=== PATIENT | male | born 1955 | race Caucasian/White ===

== ENCOUNTER 2023-04-09 14:02 | Inpatient (IN) | payer OTHER, MEDICARE ==
[~2023-04-09 14:02] MED LIST: Iopamidol-370 76% 500 ML MDV (1 ML CHARGE) ONE
[2023-04-09] MEDS ORDERED: Boostrix 0.5 ML (Tdap) VIAL (>/=7 yrs of age) ONE (14:04)
[2023-04-09] MEDS ORDERED: CEFAZOLIN 2 GM VIAL ONE ×2 (14:04→14:16)
[2023-04-09] MEDS ORDERED: Morphine 4 MG/ML VIAL ONE ×3 (14:08→17:52)
[2023-04-09] MEDS ORDERED: Lidocaine 1% w/Epinephrine 1:100K 20 ML VIAL ONE ×3 (14:16→15:20)
[2023-04-09] MEDS ORDERED: Ketamine 50 MG/ML (10ML VIAL) ONE (14:16)
[2023-04-09 14:29] LABS: #Basophils 0.2 thou/uL (0.0-0.2); #Eosinphils 0.1 thou/uL (0.0-0.7); #Neutrophils 14.8 thou/uL (1.40-6.50); %Basophils 0.9 % (0.0-1.0); %Eosinophils 0.6 % (0.0-10.0); %Lymphocytes 17.5 % (21.0-51.0); %Monocytes 5.2 % (0.0-10.0); %Neutrophils 74.5 % (42.0-75.0); Hematocrit 45.4 % (42.0-52.0); Hemoglobin 14.6 g/dL (14.0-18.0); Mean Corpuscular HGB CONC 32.2 g/dL (32.0-36.0); Mean Corpuscular Hemoglobin 30.5 pg (27.0-31.0); Mean Platelet Volume 9.4 fL (7.4-10.4); Platelet Count 225 10x3/uL (130-400); RBC Distribution Width 13.5 % (11.5-14.5); Red Blood Cell (RBC) Count 4.78 mill/uL (4.70-6.10); White Blood Cell (WBC) Count 19.8 10x3/uL (4.8-10.8)
[2023-04-09] MEDS ORDERED: fentaNYL 50 mcg/mL 1 mL Vial ONE (14:35)
[2023-04-09 14:52] LABS: ALT (SGPT) 41 U/L (8-55); AST (SGOT) 40 U/L (5-34); Alkaline Phosphatase 64 U/L (40-110); Anion Gap 14 mmol/L (10-20); BUN (Urea Nitrogen) 17 mg/dL (8.4-25.7); Bilirubin, Total 0.4 mg/dL (0.2-1.2); Calc. Creatinine Clearance 0 mL/min (70-130); Calcium 8.6 mg/dL (7.8-10.44); Carbon Dioxide 24 mmol/L (23-31); Chloride 109 mmol/L (98-107); Estimated GFR 43; Globulin 2.6 g/dL (2.4-3.5); Glucose 205 mg/dL (80-115); Potassium 3.8 mmol/L (3.5-5.1); Protein, Total 6.6 g/dL (5.8-8.1); Sodium 143 mmol/L (136-145)
[2023-04-09 15:19] LABS: INR-International Normal Ratio 1.1; PTT 22.9 sec (22.9-36.1); Prothrombin Time 14.5 sec (12.0-14.7)
[2023-04-09] MEDS ORDERED: Ketorolac Tromethamine 30 MG/ML VIAL ONE (15:33)
[2023-04-09] MEDS ORDERED: hydrALAZINE 20 MG/ML VIAL SLOW IVP PRN (16:01)
[2023-04-09] MEDS ORDERED: Ondansetron PF 4 MG/2 ML Vial IVP PRN ×2 (16:01→16:05)
[2023-04-09] MEDS ORDERED: Zolpidem Tartrate 5 MG TAB PO PRN (16:05)
[2023-04-09] MEDS ORDERED: Promethazine HCl 25 MG/ML VIAL IM PRN (16:05)
[2023-04-09] MEDS ORDERED: diphenhydrAMINE 50 MG/ML VIAL IM PRN (16:05)
[2023-04-09] MEDS ORDERED: diphenhydrAMINE 50 MG/ML VIAL IVP PRN (16:05)
[2023-04-09] MEDS ORDERED: Naloxone HCl 0.4 mg/ml Vial IV PRN (16:05)
[2023-04-09] MEDS ORDERED: HYDROmorphone 10 mg/100 ml CADD IVPB PRN (16:05)
[2023-04-09] MEDS ORDERED: diphenhydrAMINE 25 MG CAP PO PRN (16:05)
[2023-04-09] MEDS ORDERED: Communication Order-Pharmacy FS SCH (16:15)
[2023-04-09] MEDS ORDERED: Dextrose 50% Abboject 50 ML SYRINGE SLOW IVP PRN (17:00)
[2023-04-09] MEDS ORDERED: Glucagon 1 MG/ML KIT IM PRN (17:00)
[2023-04-09] MEDS ORDERED: Dextrose 5% in Water 1,000 ML IV PRN (17:00)
[2023-04-09 17:28] LABS: Lactic Acid 2.4 mmol/L (0.5-2.2)
[2023-04-09] MEDS: Ketorolac Tromethamine 30 MG/ML VIAL IVP SCH ×2 (19:31→22:58)
[2023-04-09] MEDS: Acetaminophen 500 MG TAB PO SCH ×2 (19:33→22:58)
[2023-04-09] MEDS: Famotidine/PF 20 mg/2ml Vial SLOW IVP SCH (19:35)
[2023-04-09] MEDS: Sodium Chloride 0.9% 1,000 ML IV SCH ×2 (19:41→23:39)
[2023-04-09] MEDS ORDERED: Gabapentin 300 MG CAP PO SCH (21:00)
[2023-04-09] MEDS: HumaLOG 300 UNITS/3 ML VIAL SC PRN (22:29)
[2023-04-10 02:53] LABS: #Basophils 0.1 thou/uL (0.0-0.2); #Monocytes 1.3 thou/uL (0.11-0.59); #Neutrophils 9.7 thou/uL (1.40-6.50); %Basophils 0.4 % (0.0-1.0); %Lymphocytes 17.2 % (21.0-51.0); %Monocytes 9.7 % (0.0-10.0); %Neutrophils 72.3 % (42.0-75.0); Hemoglobin 13.6 g/dL (14.0-18.0); Mean Corpuscular HGB CONC 31.6 g/dL (32.0-36.0); Mean Corpuscular Hemoglobin 30.5 pg (27.0-31.0); Mean Corpuscular Volume 96.4 fl (78.0-98.0); Mean Platelet Volume 9.6 fL (7.4-10.4); Platelet Count 142 10x3/uL (130-400); RBC Distribution Width 13.7 % (11.5-14.5); Red Blood Cell (RBC) Count 4.46 mill/uL (4.70-6.10); White Blood Cell (WBC) Count 13.4 10x3/uL (4.8-10.8)
[2023-04-10 03:33] LABS: Phosphorus 3.6 mg/dL (2.3-4.7)
[2023-04-10 03:40] LABS: Anion Gap 14 mmol/L (10-20); BUN (Urea Nitrogen) 25 mg/dL (8.4-25.7); Calc. Creatinine Clearance 51 mL/min (70-130); Calcium 8.2 mg/dL (7.8-10.44); Carbon Dioxide 18 mmol/L (23-31); Chloride 110 mmol/L (98-107); Estimated GFR 33; Glucose 203 mg/dL (80-115); Magnesium 2.3 mg/dL (1.6-2.6); Potassium 6.7 mmol/L (3.5-5.1); Sodium 135 mmol/L (136-145)
[2023-04-10] MEDS: Ketorolac Tromethamine 30 MG/ML VIAL IVP SCH (04:59)
[2023-04-10] MEDS: Acetaminophen 500 MG TAB PO SCH ×3 (04:59→18:09)
[2023-04-10] MEDS ORDERED: Calcium Chloride 1 GM/10 ML Abboject SYRINGE IVP SCH (05:00)
[2023-04-10] MEDS ORDERED: Insulin Regular 300 UNITS/3 ML VIAL IVP SCH (05:00)
[2023-04-10] MEDS ORDERED: Dextrose 50% Abboject 50 ML SYRINGE SLOW IVP PRN (05:03)
[2023-04-10] MEDS: Sodium Chloride 0.9% 1,000 ML IV SCH ×3 (05:27→18:09)
[2023-04-10] MEDS: HumaLOG 300 UNITS/3 ML VIAL SC PRN (06:08)
[2023-04-10] MEDS: Gabapentin 100 MG CAP PO SCH ×3 (08:45→21:23)
[2023-04-10 09:31] LABS: Anion Gap 15 mmol/L (10-20); BUN (Urea Nitrogen) 26 mg/dL (8.4-25.7); Calc. Creatinine Clearance 60 mL/min (70-130); Carbon Dioxide 19 mmol/L (23-31); Chloride 110 mmol/L (98-107); Estimated GFR 39; Glucose 182 mg/dL (80-115); Magnesium 2.5 mg/dL (1.6-2.6); Phosphorus 4.6 mg/dL (2.3-4.7); Potassium 4.9 mmol/L (3.5-5.1); Sodium 139 mmol/L (136-145)
[2023-04-10] MEDS ORDERED: Ipratropium/Albuterol 3 ML NEB NEB PRN ×2 (10:14→10:15)
[2023-04-10] MEDS: Ipratropium/Albuterol 3 ML NEB NEB SCH ×3 (12:34→22:32)
[2023-04-10] MEDS: Famotidine/PF 20 mg/2ml Vial SLOW IVP SCH (21:23)
[2023-04-11] MEDS: Acetaminophen 500 MG TAB PO SCH ×5 (00:20→18:40)
[2023-04-11 04:56] LABS: Anion Gap 19 mmol/L (10-20); BUN (Urea Nitrogen) 19 mg/dL (8.4-25.7); Calc. Creatinine Clearance 88 mL/min (70-130); Calcium 8.8 mg/dL (7.8-10.44); Carbon Dioxide 20 mmol/L (23-31); Chloride 109 mmol/L (98-107); Estimated GFR 62; Glucose 151 mg/dL (80-115); Sodium 143 mmol/L (136-145)
[2023-04-11] MEDS: HumaLOG 300 UNITS/3 ML VIAL SC PRN (06:30)
[2023-04-11 06:37] LABS: #Basophils 0.1 thou/uL (0.0-0.2); #Monocytes 0.9 thou/uL (0.11-0.59); #Neutrophils 10.1 thou/uL (1.40-6.50); %Basophils 0.6 % (0.0-1.0); %Eosinophils 0.1 % (0.0-10.0); %Lymphocytes 12.5 % (21.0-51.0); %Monocytes 7.2 % (0.0-10.0); %Neutrophils 79.1 % (42.0-75.0); Hematocrit 36.7 % (42.0-52.0); Hemoglobin 11.9 g/dL (14.0-18.0); Mean Corpuscular HGB CONC 32.4 g/dL (32.0-36.0); Mean Corpuscular Volume 95.6 fl (78.0-98.0); Mean Platelet Volume 9.7 fL (7.4-10.4); Platelet Count 119 10x3/uL (130-400); RBC Distribution Width 13.6 % (11.5-14.5); Red Blood Cell (RBC) Count 3.84 mill/uL (4.70-6.10); White Blood Cell (WBC) Count 12.7 10x3/uL (4.8-10.8)
[2023-04-11] MEDS ORDERED: cefTRIAXone (ROCEPHIN) 1 GM VIAL IM SCH (06:45)
[2023-04-11] MEDS: Ipratropium/Albuterol 3 ML NEB NEB SCH ×5 (07:37→23:30)
[2023-04-11] MEDS: Gabapentin 100 MG CAP PO SCH (08:54)
[2023-04-11] MEDS: Ketorolac Tromethamine 30 MG/ML VIAL IVP SCH ×3 (12:07→22:58)
[2023-04-11] MEDS: cefTRIAXone\\ROCEPHIN 1 GM in Sodium Chloride 0.9% 100 ML IVPB SCH (12:09)
[2023-04-11] MEDS: traMADol HCl 50 MG TAB PO SCH ×3 (12:35→22:59)
[2023-04-11] MEDS: Azithromycin 500 MG in Sodium Chloride 0.9% 250 ML 250 ML IVPB SCH (14:15)
[2023-04-11] MEDS: Gabapentin 300 MG CAP PO SCH ×2 (15:28→22:41)
[2023-04-11] MEDS ORDERED: Morphine 4 MG/ML VIAL SLOW IVP PRN (16:30)
[2023-04-11] MEDS ORDERED: Morphine 2 MG/ML VIAL SLOW IVP PRN (16:30)
[2023-04-11] MEDS ORDERED: Sodium Chloride 0.9% 1,000 ML IV SCH (17:00)
[2023-04-11] MEDS ORDERED: Furosemide 40 MG/4 ML VIAL SLOW IVP SCH ×2 (20:00)
[2023-04-11] MEDS: Famotidine/PF 20 mg/2ml Vial SLOW IVP SCH (21:11)
[2023-04-11] MEDS ORDERED: Acetaminophen 650 MG/20.3 ML UDCUP PO SCH (21:15)
[2023-04-12] MEDS: Ipratropium/Albuterol 3 ML NEB NEB SCH ×6 (03:30→21:32)
[2023-04-12 04:13] LABS: #Basophils 0.1 thou/uL (0.0-0.2); #Eosinphils 0.2 thou/uL (0.0-0.7); #Monocytes 0.6 thou/uL (0.11-0.59); #Neutrophils 7.2 thou/uL (1.40-6.50); %Basophils 1.1 % (0.0-1.0); %Eosinophils 1.5 % (0.0-10.0); %Lymphocytes 18.6 % (21.0-51.0); %Monocytes 6.1 % (0.0-10.0); %Neutrophils 72.3 % (42.0-75.0); Hematocrit 34.8 % (42.0-52.0); Hemoglobin 10.9 g/dL (14.0-18.0); Mean Corpuscular HGB CONC 31.3 g/dL (32.0-36.0); Mean Corpuscular Hemoglobin 29.9 pg (27.0-31.0); Mean Corpuscular Volume 95.6 fl (78.0-98.0); Mean Platelet Volume 9.6 fL (7.4-10.4); RBC Distribution Width 13.6 % (11.5-14.5); Red Blood Cell (RBC) Count 3.64 mill/uL (4.70-6.10); White Blood Cell (WBC) Count 9.9 10x3/uL (4.8-10.8)
[2023-04-12 04:17] LABS: Platelet Count 115 10x3/uL (130-400)
[2023-04-12 05:00] LABS: Chloride 109 mmol/L (98-107); Potassium 4.3 mmol/L (3.5-5.1); Sodium 144 mmol/L (136-145)
[2023-04-12 05:01] LABS: Anion Gap 12 mmol/L (10-20); BUN (Urea Nitrogen) 21 mg/dL (8.4-25.7); Calc. Creatinine Clearance 84 mL/min (70-130); Calcium 8.9 mg/dL (7.8-10.44); Carbon Dioxide 27 mmol/L (23-31); Estimated GFR 60; Glucose 158 mg/dL (80-115); Magnesium 2.1 mg/dL (1.6-2.6); Phosphorus 3.3 mg/dL (2.3-4.7)
[2023-04-12] MEDS: Acetaminophen 650 MG/20.3 ML UDCUP PO SCH ×4 (05:07→23:57)
[2023-04-12] MEDS: Ketorolac Tromethamine 30 MG/ML VIAL IVP SCH ×4 (05:07→23:57)
[2023-04-12] MEDS: traMADol HCl 50 MG TAB PO SCH ×4 (05:08→23:58)
[2023-04-12] MEDS: Gabapentin 300 MG CAP PO SCH ×3 (08:42→20:08)
[2023-04-12] MEDS: Losartan 25 MG TAB PO SCH (08:42)
[2023-04-12] MEDS: Famotidine 20 MG TAB PER TUBE SCH ×2 (08:43→20:09)
[2023-04-12] MEDS: Azithromycin 500 MG in Sodium Chloride 0.9% 250 ML 250 ML IVPB SCH (09:30)
[2023-04-12] MEDS: cefTRIAXone\\ROCEPHIN 1 GM in Sodium Chloride 0.9% 100 ML IVPB SCH (11:46)
[2023-04-12] MEDS: HumaLOG 300 UNITS/3 ML VIAL SC PRN (17:33)
[2023-04-12] MEDS: Fenofibrate Nanocrystallized 145 MG TAB PO SCH (20:09)
[2023-04-13] MEDS: Ipratropium/Albuterol 3 ML NEB NEB SCH ×6 (01:15→22:59)
[2023-04-13] MEDS: traMADol HCl 50 MG TAB PO SCH ×4 (05:26→23:42)
[2023-04-13] MEDS: Ketorolac Tromethamine 30 MG/ML VIAL IVP SCH ×2 (05:27→13:46)
[2023-04-13] MEDS: Acetaminophen 650 MG/20.3 ML UDCUP PO SCH ×4 (05:28→23:41)
[2023-04-13 05:40] LABS: Anion Gap 14 mmol/L (10-20); BUN (Urea Nitrogen) 24 mg/dL (8.4-25.7); Calc. Creatinine Clearance 97 mL/min (70-130); Calcium 9.1 mg/dL (7.8-10.44); Carbon Dioxide 24 mmol/L (23-31); Chloride 112 mmol/L (98-107); Estimated GFR 73; Glucose 189 mg/dL (80-115); Potassium 4.4 mmol/L (3.5-5.1); Sodium 146 mmol/L (136-145)
[2023-04-13] MEDS: HumaLOG 300 UNITS/3 ML VIAL SC PRN (06:06)
[2023-04-13] MEDS: Gabapentin 300 MG CAP PO SCH ×3 (10:08→20:09)
[2023-04-13] MEDS: Famotidine 20 MG TAB PER TUBE SCH ×2 (10:10→20:09)
[2023-04-13] MEDS: Losartan 25 MG TAB PO SCH (10:10)
[2023-04-13] MEDS: cefTRIAXone\\ROCEPHIN 1 GM in Sodium Chloride 0.9% 100 ML IVPB SCH (10:14)
[2023-04-13] MEDS: Azithromycin 500 MG in Sodium Chloride 0.9% 250 ML 250 ML IVPB SCH (12:34)
[2023-04-13] MEDS: Fenofibrate Nanocrystallized 145 MG TAB PO SCH (20:09)
[2023-04-14] MEDS: Ipratropium/Albuterol 3 ML NEB NEB SCH ×3 (03:38→10:44)
[2023-04-14] MEDS: Acetaminophen 650 MG/20.3 ML UDCUP PO SCH ×4 (05:21→23:45)
[2023-04-14] MEDS: traMADol HCl 50 MG TAB PO SCH ×4 (05:22→23:45)
[2023-04-14] MEDS: HumaLOG 300 UNITS/3 ML VIAL SC PRN (06:06)
[2023-04-14] MEDS: Famotidine 20 MG TAB PER TUBE SCH ×3 (08:28→21:01)
[2023-04-14] MEDS: Losartan 25 MG TAB PO SCH ×2 (08:28→10:11)
[2023-04-14] MEDS: Gabapentin 300 MG CAP PO SCH ×4 (08:28→21:02)
[2023-04-14] MEDS: Azithromycin 500 MG in Sodium Chloride 0.9% 250 ML 250 ML IVPB SCH ×2 (08:28→10:12)
[2023-04-14] MEDS ORDERED: Insulin NPH Human Isophane 100 UNITS/ML (10 ML VIAL) SC SCH ×2 (09:00)
[2023-04-14] MEDS ORDERED: Ipratropium/Albuterol 3 ML NEB NEB PRN (11:16)
[2023-04-14] MEDS: cefTRIAXone\\ROCEPHIN 1 GM in Sodium Chloride 0.9% 100 ML IVPB SCH (12:14)
[2023-04-14] MEDS: Fenofibrate Nanocrystallized 145 MG TAB PO SCH (21:01)
[2023-04-14] MEDS: Senokot S 8.6-50 MG TAB PO SCH (21:02)
[2023-04-14] MEDS: Insulin Glargine 30 UNITS/0.3 ML VIAL SC SCH (21:09)
[2023-04-15 02:20] LABS: #Basophils 0.1 thou/uL (0.0-0.2); #Eosinphils 0.4 thou/uL (0.0-0.7); #Monocytes 0.8 thou/uL (0.11-0.59); #Neutrophils 5.3 thou/uL (1.40-6.50); %Basophils 0.9 % (0.0-1.0); %Eosinophils 4.3 % (0.0-10.0); %Lymphocytes 27.5 % (21.0-51.0); %Monocytes 8.2 % (0.0-10.0); %Neutrophils 58.3 % (42.0-75.0); Hematocrit 39.6 % (42.0-52.0); Hemoglobin 12.3 g/dL (14.0-18.0); Mean Corpuscular HGB CONC 31.1 g/dL (32.0-36.0); Mean Corpuscular Volume 96.6 fl (78.0-98.0); Mean Platelet Volume 10.1 fL (7.4-10.4); Platelet Count 201 10x3/uL (130-400); RBC Distribution Width 14.4 % (11.5-14.5); White Blood Cell (WBC) Count 9.1 10x3/uL (4.8-10.8)
[2023-04-15 02:48] LABS: ALT (SGPT) 35 U/L (8-55); AST (SGOT) 29 U/L (5-34); Albumin 3.7 g/dL (3.4-4.8); Alkaline Phosphatase 83 U/L (40-110); Anion Gap 17 mmol/L (10-20); BUN (Urea Nitrogen) 25 mg/dL (8.4-25.7); Bilirubin, Total 0.8 mg/dL (0.2-1.2); Calc. Creatinine Clearance 101 mL/min (70-130); Calcium 9.3 mg/dL (7.8-10.44); Carbon Dioxide 24 mmol/L (23-31); Chloride 108 mmol/L (98-107); Estimated GFR 71; Globulin 3.4 g/dL (2.4-3.5); Glucose 183 mg/dL (80-115); Potassium 4.2 mmol/L (3.5-5.1); Protein, Total 7.1 g/dL (5.8-8.1); Sodium 145 mmol/L (136-145)
[2023-04-15 03:34] LABS: Troponin I 0.066 ng/mL (< 0.028)
[2023-04-15 05:51] LABS: Troponin I 0.072 ng/mL (< 0.028)
[2023-04-15] MEDS: Acetaminophen 650 MG/20.3 ML UDCUP PO SCH ×4 (05:56→23:42)
[2023-04-15] MEDS: HumaLOG 300 UNITS/3 ML VIAL SC PRN ×3 (05:57→19:22)
[2023-04-15] MEDS: traMADol HCl 50 MG TAB PO SCH ×4 (06:09→23:42)
[2023-04-15] MEDS: Gabapentin 300 MG CAP PO SCH ×3 (08:07→20:10)
[2023-04-15] MEDS: Famotidine 20 MG TAB PER TUBE SCH ×2 (08:07→20:09)
[2023-04-15] MEDS: Senokot S 8.6-50 MG TAB PO SCH ×2 (08:08→20:09)
[2023-04-15] MEDS: Azithromycin 500 MG in Sodium Chloride 0.9% 250 ML 250 ML IVPB SCH (08:09)
[2023-04-15] MEDS: Insulin Glargine 30 UNITS/0.3 ML VIAL SC SCH ×2 (08:10→20:10)
[2023-04-15] MEDS: Polyethylene Glycol 3350 17 GM Packet PO SCH (08:11)
[2023-04-15] MEDS: Tamsulosin HCl 0.4 MG CAP PO SCH (08:15)
[2023-04-15 08:43] LABS: Troponin I 0.077 ng/mL (< 0.028)
[2023-04-15] MEDS: cefTRIAXone\\ROCEPHIN 1 GM in Sodium Chloride 0.9% 100 ML IVPB SCH (11:36)
[2023-04-15] MEDS: Fenofibrate Nanocrystallized 145 MG TAB PO SCH (20:10)
[2023-04-16] MEDS: Acetaminophen 650 MG/20.3 ML UDCUP PO SCH ×4 (04:22→23:13)
[2023-04-16] MEDS: traMADol HCl 50 MG TAB PO SCH ×4 (04:22→23:13)
[2023-04-16] MEDS: Polyethylene Glycol 3350 17 GM Packet PO SCH (09:44)
[2023-04-16] MEDS: Insulin Glargine 30 UNITS/0.3 ML VIAL SC SCH ×2 (09:44→20:39)
[2023-04-16] MEDS: Gabapentin 300 MG CAP PO SCH ×3 (09:45→20:40)
[2023-04-16] MEDS: Azithromycin 500 MG in Sodium Chloride 0.9% 250 ML 250 ML IVPB SCH (09:45)
[2023-04-16] MEDS: Senokot S 8.6-50 MG TAB PO SCH ×2 (09:45→20:40)
[2023-04-16] MEDS: Tamsulosin HCl 0.4 MG CAP PO SCH (09:46)
[2023-04-16] MEDS: Famotidine 20 MG TAB PER TUBE SCH ×2 (09:46→20:40)
[2023-04-16] MEDS: Losartan 25 MG TAB PO SCH (09:46)
[2023-04-16] MEDS: cefTRIAXone\\ROCEPHIN 1 GM in Sodium Chloride 0.9% 100 ML IVPB SCH (11:15)
[2023-04-16 12:27] VITALS: BMI 35.0
[2023-04-16] MEDS: HumaLOG 300 UNITS/3 ML VIAL SC PRN (12:56)
[2023-04-16] MEDS: Fenofibrate Nanocrystallized 145 MG TAB PO SCH (20:47)
[2023-04-17] MEDS: traMADol HCl 50 MG TAB PO SCH ×3 (04:10→17:54)
[2023-04-17] MEDS: Acetaminophen 650 MG/20.3 ML UDCUP PO SCH ×3 (04:10→17:55)
[2023-04-17] MEDS: Losartan 25 MG TAB PO SCH (09:07)
[2023-04-17] MEDS: Cyclobenzaprine 10 MG TAB PO PRN (09:07)
[2023-04-17] MEDS: Famotidine 20 MG TAB PER TUBE SCH ×2 (09:07→21:45)
[2023-04-17] MEDS: Gabapentin 300 MG CAP PO SCH ×3 (09:07→21:45)
[2023-04-17] MEDS: Polyethylene Glycol 3350 17 GM Packet PO SCH (09:08)
[2023-04-17] MEDS: Azithromycin 500 MG in Sodium Chloride 0.9% 250 ML 250 ML IVPB SCH (09:08)
[2023-04-17] MEDS: Insulin Glargine 30 UNITS/0.3 ML VIAL SC SCH ×2 (09:08→21:46)
[2023-04-17] MEDS: Senokot S 8.6-50 MG TAB PO SCH ×2 (09:08→21:45)
[2023-04-17] MEDS: Tamsulosin HCl 0.4 MG CAP PO SCH (09:08)
[2023-04-17] MEDS ORDERED: Acetaminophen/Codeine 30-300mg Tablet PO SCH (12:00)
[2023-04-17] MEDS: Acetaminophen/Codeine 30-300mg Tablet PO SCH ×2 (15:08→21:45)
[2023-04-17] MEDS: Fenofibrate Nanocrystallized 145 MG TAB PO SCH (21:45)
[2023-04-18] MEDS: Acetaminophen 650 MG/20.3 ML UDCUP PO SCH (00:05)
[2023-04-18] MEDS: Cyclobenzaprine 10 MG TAB PO PRN (00:05)
[2023-04-18] MEDS: traMADol HCl 50 MG TAB PO SCH (00:05)
[2023-04-18 03:50] VITALS: BP 139/74; TEMP 97.7
[2023-04-18] MEDS ORDERED: Azithromycin 250 MG TAB PO SCH (09:00)
== END 2023-04-18 04:08 | DRG 199 ==
LOC: ERS 14:02 → IMCU/EMU 16:04 → SURG A 04-12 21:06
PROVIDERS: ADMIT Surgery; ATTEND Surgery
PROC: 0W9930Z Drainage of Right Pleural Cavity with Drainage Device, Percutaneous Approach (ICD-10-PCS; principal; 2023-04-09)
DX: S27.2XXA Traumatic hemopneumothorax, initial encounter (principal); J69.0 Pneumonitis due to inhalation of food and vomit; I24.8 Other forms of acute ischemic heart disease; N17.9 Acute kidney failure, unspecified; S22.43XA Multiple fractures of ribs, bilateral, initial encounter for closed fracture; J44.1 Chronic obstructive pulmonary disease with (acute) exacerbation; S42.001A Fracture of unspecified part of right clavicle, initial encounter for closed fracture; S42.101A Fracture of unspecified part of scapula, right shoulder, initial encounter for closed fracture; E11.9 Type 2 diabetes mellitus without complications; I10 Essential (primary) hypertension; R33.9 Retention of urine, unspecified; Z79.4 Long term (current) use of insulin; Z79.82 Long term (current) use of aspirin; Z86.73 Personal history of transient ischemic attack (TIA), and cerebral infarction without residual deficits; Z79.01 Long term (current) use of anticoagulants; E78.5 Hyperlipidemia, unspecified; V29.99XA Rider (driver) (passenger) of other motorcycle injured in unspecified traffic accident, initial encounter
CPT/HCPCS: 32551; 36415; 36416; 51702; 70450; 71045; 71260; 72125; 74018; 74177; 80048; 80053; 83605; 83735; 84100; 84484; 85025; 85610; 85730; 86850; 86900; 86901; 87070; 87205; 89220; 90715; 93005; 93010; 94640; 96365; 96375; 96376; G0390; J0360; J0456; J0696; J1200; J1650; J1815; J1885; J1940; J2270; J3010; J3490; J7050; J7620; J7999; Q9967; S0028